=== PATIENT | female | born 1935 | race Caucasian/White ===

== ENCOUNTER 2019-08-19 20:18 | Inpatient (IN) | payer MEDICARE, SELFPAY ==
[~2019-08-19] VITALS: Ht 167.6 cm; Wt 50.7 kg
[2019-08-19 20:51] LABS: BASO # 0.1 10^3/uL (0.0-0.2); BASO % 0.5 % (0.0-1.0); HEMATOCRIT 44.1 % (36.0-47.0); HEMOGLOBIN 14.4 g/dl (12.0-15.5); LYMPH # 0.6 10^3/uL (1.5-5.0); LYMPH % 4.6 % (24.0-44.0); MEAN CORPUSCULAR HEMOGLOBIN 30.6 pg (27.0-33.0); MEAN CORPUSCULAR HGB CONC 32.7 g/dl (32.0-36.5); MEAN CORPUSCULAR VOLUME 93.8 fl (80.0-96.0); MONO # 0.5 10^3/uL (0.0-0.8); MONO % 4.2 % (0.0-5.0); NEUTROPHILS # 11.6 10^3/uL (1.5-8.5); NEUTROPHILS % 90.2 % (36.0-66.0); PLATELET COUNT, AUTOMATED 270 10^3/uL (150-450); WHITE BLOOD COUNT 12.8 10^3/uL (4.0-10.0)
[2019-08-19 20:55] LABS: INR 1.03; PROTHROMBIN TIME 13.2 SECONDS (11.8-14.0)
[2019-08-19] MEDS ORDERED: ENOXAPARIN 30MG/0.3ML SYRINGE (J1650 PER 10MG) SC SCH (21:00)
[2019-08-19 21:01] LABS: BLOOD UREA NITROGEN 20 MG/DL (7-18); CALCIUM LEVEL 8.8 MG/DL (8.8-10.2); CARBON DIOXIDE LEVEL 29 MEQ/L (21-32); CHLORIDE LEVEL 103 MEQ/L (98-107); CREATININE FOR GFR 0.82 MG/DL (0.55-1.30); GLOMERULAR FILTRATION RATE > 60.0 (>32); GLUCOSE, FASTING 117 MG/DL (70-100); POTASSIUM SERUM 4.1 MEQ/L (3.5-5.1); SODIUM LEVEL 137 MEQ/L (136-145)
--- NOTE | 2019-08-19 21:14 | ECGEPIP ---
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
[2019-08-19] MEDS ORDERED: MOM 30ML SUSPENSION UDC PO PRN (22:45)
--- NOTE | 2019-08-19 23:25 | HPEPDOC ---
General Date of Admission August 19, 2019 at 22:37 Date of Service: August 19, 2019 Attending Physician: IBIS LAUREANO MD Chief Complaint The patient is a 84-year-old female admitted with a reason for visit of Hip Fracture. Source: Patient Exam Limitations: No limitations Timing/Duration: 4-6 hours Severity: Moderate Associated Symptoms: Mechanical fall History of Present Illness 84 yo health woman with no chronic medical problems who misstepped onto uneven pavement where there was a hole and she fell and presented to the ED where she was found to have a L intertrochanteric hip fracture. On presentation she suprisingly does not have much pain except when she moves her L leg, and otherwise feels well and is eager to have her surgery. She reports no LOC, recent fever, chills, travel, sick contacts, or chronic medical problems. Dr. Aguilera was called by the ED and recommended admission by medicine with plan for surgery shortly. Work up was notable for WBC 12.8, Hgb 14.4, Na 137, K 4.1, Cr 0.82, INR 1.03, EKG with NSR, CXR without acute pathology and XR of L hip and L femur XR confirmed the fracture. On evaluation she appeared comfortable with no complaints, and instructed that she is DNR/DNI despite her good baseline health. Home Medications No Active Prescriptions or Reported Meds Allergies Coded Allergies: No Known Allergies (Verified Allergy, Unknown, 08/19/19) Past Medical History Medical History Healthy at baseline Surgical History None Family History Significant Family History: No pertinent family hx Social History * Smoker: Denies Alcohol: occationally Drugs: denies Recent Travel/Sick Contacts: Denies: Recent travel, Recent sick contacts Psychosocial History: No pertinent psych hx Lives at home alone, independently, has family around in town. A-FIB/CHADSVASC A-FIB History Current/History of A-Fib/PAF?: No Current PO Anticoag Therapy: No Age/Risk Factor Scoring CHADSVASC: CHADSVASC Response (Comments) Value Age Risk Factor Age >/= 75 years old 2 Gender Risk Factor Female 1 Hx of CHF No 0 Hx of HTN No 0 Hx of Stroke/TIA/or VTE No 0 Hx of Diabetes No 0 Hx of Vascular Disease No 0 Total 3 Treatment Treatment ordered: NONE Reason Anticoagulant not given: Not indicated/[id number] Review of Systems Constitutional: Denies: Chills, Fever, Night Sweats Eyes: Denies: Pain, Vision change ENT: Denies: Head Aches, Ear Pain, Dysphagia Skin: Denies: Rash, Lesions, Breakdown Pulmonary: Denies: Dyspnea, Cough Cardiovascular: Denies: Chest Pain, Palpitations, Orthopnea, Paroxysmal Noc. Dyspnea, Lt Headedness Gastrointestinal: Denies: Nausea, Vomiting, Abdominal Pain, Diarrhea Genitourinary: Denies: Dysuria, Frequency, Incontinence, Retention Hematologic: Denies: Bruising, Bleeding Excessively Endocrine: Denies: Polydipsia, Polyphagia, Polyuria, Heat Intolerance, Cold Intolerance, Other Endocrine Sx Musculoskeletal: Reports: Leg Pain (L hip pain); Denies: Neck Pain, Back Pain, Shoulder Pain, Arm Pain, Hand Pain, Foot Pain Neurological: Denies: Weakness, Numbness, Incoordination, Change in speech, Confusion Psych: Reports: Mood Normal; Denies: Depression, Memory Issues Physical Examination General Exam: Positive: Alert, No Acute Distress Eye Exam: Positive: PERRLA, Conjunctiva & lids normal, EOMI; Negative: Sclera icteric ENT Exam: Positive: Atraumatic, Mucous membr. moist/pink, Pharynx Normal Neck Exam: Positive: Supple; Negative: JVD, thyromegaly Chest Exam: Positive: Clear to auscultation, Normal air movement Heart Exam: Positive: Rate Normal, Regular Rhythm, Normal S1, Normal S2; Negative: Murmurs, Rubs Telemetry: Positive: No significant arrhythmia Abdomen Exam: Positive: Normal bowel sounds, Soft; Negative: Tenderness, Hepatospenomegaly Extremity Exam: Positive: Normal pulses, Tenderness (tender L hip with movement); Negative: Clubbing, Cyanosis, Edema, Swelling Skin Exam: Positive: Nl turgor and temperature; Negative: Breakdown, Lesion Neuro Exam: Positive: Normal Speech, Strength at 5/5 X4 ext (LLE exam limited by pain), Normal Tone, Sensation Intact, Cranial Nerves 3-12 NL Psych Exam: Positive: Mental status NL, Mood NL, Oriented x 3 Vital Signs Vital Signs Date Time Temp Pulse Resp B/P (MAP) Pulse Ox O2 Delivery O2 Flow Rate FiO2 08/19/19 21:33 86 18 97 Room Air 08/19/19 20:34 97.8 160/98 (118) Laboratory Data Labs 24H Laboratory Tests 2 08/19/19 20:31: Immature Granulocyte % (Auto) 0.5, Neutrophils (%) (Auto) 90.2H, Lymphocytes (%) (Auto) 4.6L, Monocytes (%) (Auto) 4.2, Eosinophils (%) (Auto) 0.0, Basophils (%) (Auto) 0.5, Neutrophils # (Auto) 11.6H, Lymphocytes # (Auto) 0.6L, Monocytes # (Auto) 0.5, Eosinophils # (Auto) 0.0, Basophils # (Auto) 0.1, Nucleated Red Blood Cells % (auto) 0.0, Prothrombin Time 13.2, Prothromb Time International Ratio 1.03, Activated Partial Thromboplast Time 27.0, Anion Gap 5L, Glomerular Filtration Rate > 60.0, Calcium Level 8.8 CBC/BMP Laboratory Tests 08/19/19 20:31 Assessment/Plan 84 yo healthy W who had a mechanical fall ealier today and is now being admitted with a L intertrochanteric femur fracture now pending surgery. L hip fracture: -No pain when not moving -PRN tylenol Q6HP, will escalate pain control as needed -Dr. Singletary is aware, and consulted and recommended admission by medicine -No medical problems, otherwise nonfocal physical examination, CBC with reactive leukocytosis, BMP wnl, EKG with NSR, coags wnl, CXR wnl, pending Covid-19 testing per guidelines pre-surgery. Otherwise medically clear for surgery at this time. Will update note with covid-19 results shortly. DVT ppx: TEDs Dispo: medsurg, pending surgery Diet: NPO for surgery Plan / VTE VTE Prophylaxis Ordered?: Yes IBIS LAUREANO MD August 19, 2019 23:24
[2019-08-19] MEDS: ACETAMINOPHEN TAB 650MG DOSE (2X325MG) PO PRN (23:44)
[2019-08-20] VITALS (9 sets, daily range): BP systolic 101–122; BP diastolic 65–82
[2019-08-20] MEDS: D5W/0.9% SODIUM CHLORIDE 1,000 ML IV SCH ×2 (01:28→12:20)
[2019-08-20] MEDS: MORPHINE 2 MG/ML 1ML VIAL (J2270) IV PRN ×2 (01:28→07:47)
--- NOTE | 2019-08-20 02:26 | REP ---
Clinical: Trauma. Fracture. Technique: AP and cross-table lateral views of the mid to distal left femur. Findings: Visualized portions of the left femur are intact without acute fracture or dislocation. No subcutaneous emphysema. No foreign body. Impression: Mid to distal femur without acute fracture or dislocation. Electronically Signed by Nicholas Coulter MD 08/20/2019 02:17 A
--- NOTE | 2019-08-20 02:27 | REP ---
Clinical: Trauma. Technique: Frontal view of the pelvis with neutral and frog lateral views of the left hip. Findings: Angulated displaced intertrochanteric fracture of the proximal left femur. Remainder of the visualized pelvis and right hip demonstrate generalized age-related changes. No significant foreign body. Impression: Angulated displaced intertrochanteric fracture of the proximal left femur. Electronically Signed by Nicholas Coulter MD 08/20/2019 02:18 A
--- NOTE | 2019-08-20 02:28 | REP ---
Clinical: Preoperative assessment. Left hip fracture . Comparison: None . Findings: The mediastinum and cardiac silhouette are stable and within normal limits for portable technique. The lung rhodes are clear without acute consolidation, effusion, or pneumothorax. Skeletal structures are intact. Impression: No acute cardiopulmonary process appreciated. Electronically Signed by Nicholas Coulter MD 08/20/2019 02:19 A
[2019-08-20 05:50] LABS: HEMATOCRIT 34.2 % (36.0-47.0); MEAN CORPUSCULAR HGB CONC 33.3 g/dl (32.0-36.5); MEAN CORPUSCULAR VOLUME 92.9 fl (80.0-96.0); PLATELET COUNT, AUTOMATED 192 10^3/uL (150-450); RED BLOOD COUNT 3.68 10^6/uL (4.00-5.40)
[2019-08-20] MEDS ORDERED: ceFAZolin SOD 2 GM in IV 1 EA IV ONE (06:00)
[2019-08-20 06:13] LABS: BLOOD UREA NITROGEN 21 MG/DL (7-18); CALCIUM LEVEL 8.1 MG/DL (8.8-10.2); CARBON DIOXIDE LEVEL 26 MEQ/L (21-32); CHLORIDE LEVEL 105 MEQ/L (98-107); CREATININE FOR GFR 0.71 MG/DL (0.55-1.30); GLOMERULAR FILTRATION RATE > 60.0 (>32); GLUCOSE, FASTING 163 MG/DL (70-100); POTASSIUM SERUM 3.9 MEQ/L (3.5-5.1); SODIUM LEVEL 138 MEQ/L (136-145)
[2019-08-20 06:15] LABS: HEMOGLOBIN 11.4 g/dl (12.0-15.5)
[2019-08-20] MEDS ORDERED: FLUBLOK(EGG FREE)(QUAD)INFLUENZA VACC 0.5ML SYRINGE 18YRS & OLDER IM ONE (09:00)
[2019-08-20] MEDS ORDERED: propofoL 200 MG/20 ML VIAL As Ordered ONE (10:48)
[2019-08-20] MEDS ORDERED: LIDOCAINE 2% 100MG/5ML SDV (FOR ANES.) As Ordered ONE (10:48)
[2019-08-20] MEDS ORDERED: MIDAZOLAM INJ 2MG/2ML VIAL (J2250 PER 1MG) As Ordered ONE (11:41)
[2019-08-20] MEDS ORDERED: fentaNYL 100 MCG/2 ML INJECTION (J3010) As Ordered ONE (11:41)
[2019-08-20] MEDS ORDERED: ceFAZolin 2 GM/D5W 50 ML IV BAG (J0690 PER 500MG) As Ordered ONE (11:41)
[2019-08-20] MEDS ORDERED: ROCURONIUM BROMIDE 50 MG/5 ML VIAL As Ordered ONE (12:12)
[2019-08-20] MEDS ORDERED: dexameTHASONE 4 MG/ML 1ML VIAL (J1100 PER 1MG) As Ordered ONE (12:35)
[2019-08-20] MEDS ORDERED: PHENYLephrine 500MCG 5ML (100MCG/ML) SYRINGE As Ordered ONE ×2 (12:36→12:49)
[2019-08-20] MEDS ORDERED: ePHEDrine SULFATE 25 MG/5 ML(5MG/ML) SYRINGE As Ordered ONE (12:36)
[2019-08-20] MEDS ORDERED: ACETAMINOPHEN 1000MG 100ML IV BTL (OFIRMEV) (J0131 PER 10MG) As Ordered ONE (12:51)
[2019-08-20] MEDS ORDERED: ONDANSETRON 4MG/2ML VIAL As Ordered ONE (12:51)
--- NOTE | 2019-08-20 13:08 | CR ---
DATE OF CONSULTATION: 08/20/2019 CHIEF COMPLAINT: Left hip pain. The patient states that she was at home when she stepped into a hole and immediately fell and appreciated sharp pain to her left hip. She was unable to ambulate, and any sort of movement caused severe pain and is only improved with rest and immobilization and pain medication. Denies any fevers, chills, nausea, vomiting, loss of consciousness, or pain elsewhere. A complete review of systems was completed with pertinent positives and negatives as per history of present illness (HPI). A ten-system review. All other systems negative. HOME MEDICATIONS: No active prescriptions. No known drug allergies. PAST MEDICAL HISTORY: Is healthy at baseline. No past surgical history. FAMILY HISTORY: Is nonpertinent. SOCIAL HISTORY: The patient denies being a smoker. Occasional alcoholic drink. Denies any illicit drug use. PHYSICAL EXAMINATION: The patient is awake, alert, and oriented. Well dressed, appropriate affect. Breathing unlabored on room air. Normocephalic, atraumatic. Bilateral upper extremities: No tenderness to palpation. Full active range of motion of the shoulders, elbows, and fingers. Positive anterior interosseous nerve (AIN) and posterior interosseous nerve (PIN) and ulnar motor nerve functions. Sensation intact to light touch, superficial sensory branches of the radial nerve, median nerve, and ulnar nerve. Radial pulse 2+, regular rate. Right lower extremity: No tenderness to palpation over the tib. Negative logroll. Able to range the knee and ankle. Sensation intact to light touch superficial peroneal, deep peroneal, sural, saphenous, and tibia distributions. Positive extensor hallucis longus (EHL), flexor hallucis longus (FHL), tibia, and gastroc motor functions. Posterior tibial pulse 2+, regular rate. Left lower extremity: Positive logroll. Tender to palpation about the hip. No tenderness to palpation about the knee or ankle. Positive EHL, FHL, tibia, and gastroc motor functions. Sensation intact to light touch superficial, peroneal, deep peroneal, sural, saphenous, and tibia distributions. Posterior tibial pulse 2+, regular rate. IMAGING: Reviewed. Left hip and femur x-rays reviewed, demonstrating intertrochanteric hip fracture that is displaced. I expressed to the patient that, unfortunately, at this time it is an unstable fracture, and I recommend operative intervention for her in order for her to increase her mobilization and pain control. The patient expressed understanding and agreed to that plan. We discussed the risks and benefits including but not limited to infection, damage to surrounding structures, incomplete relief, malunion, nonunion. The patient wished to proceed. The patient is consented. The patient is bedrest until surgery. Appreciate medical admission and management.
[2019-08-20] MEDS ORDERED: LR 1,000 ML IV SCH (13:45)
[2019-08-20] MEDS ORDERED: oxyCODONE 5MG TAB PO PRN (13:45)
[2019-08-20] MEDS ORDERED: MORPHINE 2 MG/ML 1ML VIAL (J2270) IV PRN (13:45)
[2019-08-20] MEDS ORDERED: fentaNYL 100 MCG/2 ML INJECTION (J3010) IV PRN (13:45)
--- NOTE | 2019-08-20 14:08 | IPNPDOC ---
Date Seen The patient was seen on 08/20/19. Progress Note SUBJECTIVE: pain controlled, ortho surgery 08/20/19, no history of stroke, SD: Medically clear for surgery: Class I risk 0 points via revised cardiac risk index, COVID neg OBJECTIVE PHYSICAL EXAMINATION: VITAL SIGNS: Please see below. GENERAL: No distress HEENT: Normocephalic, atraumatic, moist mucous membranes NECK: Supple CARDIOVASCULAR EXAMINATION: S1, S2 RESPIRATORY EXAMINATION: CTAB ABDOMINAL EXAMINATION: Soft, nontender, nondistended, positive bowel sounds EXTREMITIES: no edema, LLE externally rotated, pulses intact SKIN: No rash NEUROLOGICAL EXAMINATION: Alert and oriented 3, no focal deficits PSYCHIATRIC EXAMINATION: Calm and cooperative, appropriate affect LABORATORY DATA, IMAGING STUDIES, MICROBIOLOGY: Please see below. Assessment and plan: Pt is a healthy 84 yoF who presents with mechanical fall with L intertrochanteric femur fracture. #L hip fracture secondary to mechanical fall: Pain controlled, PRN tylenol Q6HP, will escalate pain control as needed -Dr. Singletary is aware, and consulted, COVID screen neg -PT/OT DVT ppx: TEDs Dispo: medsurg, pending surgery Diet: NPO for surgery, regular diet after surgery VS, I&O, 24H, Fishbone Vital Signs/I&O Vital Signs Date Time Temp Pulse Resp B/P (MAP) Pulse Ox O2 Delivery O2 Flow Rate FiO2 08/20/19 13:49 69 16 104/58 (73) 95 Room Air 08/20/19 13:34 97.7 I&O- Last 24 Hours up to 6 AM 08/20/19 06:00 Intake Total 0 ml Output Total 0 ml Balance 0 ml Laboratory Data 24H LABS Laboratory Tests 2 08/19/19 20:31: Immature Granulocyte % (Auto) 0.5, Neutrophils (%) (Auto) 90.2H, Lymphocytes (%) (Auto) 4.6L, Monocytes (%) (Auto) 4.2, Eosinophils (%) (Auto) 0.0, Basophils (%) (Auto) 0.5, Neutrophils # (Auto) 11.6H, Lymphocytes # (Auto) 0.6L, Monocytes # (Auto) 0.5, Eosinophils # (Auto) 0.0, Basophils # (Auto) 0.1, Nucleated Red Blood Cells % (auto) 0.0, Prothrombin Time 13.2, Prothromb Time International Ratio 1.03, Activated Partial Thromboplast Time 27.0, Anion Gap 5L, Glomerular Filtration Rate > 60.0, Calcium Level 8.8 08/19/19 22:58: Coronavirus (COVID-19)(PCR) NEGATIVE 08/20/19 05:33: Nucleated Red Blood Cells % (auto) 0.0, Anion Gap 7L, Glomerular Filtration Rate > 60.0, Calcium Level 8.1L CBC/BMP Laboratory Tests 08/19/19 20:31 08/20/19 05:33 LILLIANA SORIA MD August 20, 2019 14:06
[2019-08-20] MEDS ORDERED: PERCOCET 5MG/325MG TAB PO PRN ×2 (15:15)
--- NOTE | 2019-08-20 15:41 | REP ---
C-ARM VIEWS LEFT HIP AND FEMUR: Multiple C-arm views left hip and femur are performed during placement of intramedullary malinda for a fracture of the proximal femur. The structures are well aligned. The fixation appears in good position. 2 minutes 26 seconds fluoroscopy time utilized. Electronically Signed by Mj Lu MD 08/20/2019 07:31 P
[2019-08-20] MEDS: ceFAZolin 1GM VIAL (J0690 PER 500MG) IV SCH (20:16)
--- NOTE | 2019-08-20 22:18 | RO ---
DATE OF PROCEDURE: 08/20/2019 PREPROCEDURE DIAGNOSIS: Left intertrochanteric hip fracture. POSTPROCEDURE DIAGNOSIS: Left intertrochanteric hip fracture. PROCEDURE: Left femur rodding. SURGEON: Dr. Erick Mack FLASH WELDING MACHINE OPERATOR: None. ANESTHESIA: General. INDICATIONS: This is an 84-year-old female that suffered a fall and fracture of her left hip. We discussed the risks and benefits of surgical intervention, including but not limited to, infection, damage to surrounding structures, blood loss, incomplete relief, malunion, nonunion, patient wished to proceed. We discussed how operative intervention increased her pain control and mobility and decrease the risk to her cardiovascular pulmonary health. Patient agreed and wished to proceed. PREOPERATIVE ANTIBIOTICS: 2 grams of Ancef. BLOOD LOSS: 100 mL. COMPLICATIONS: None. DESCRIPTION OF PROCEDURE: The patient was brought back to the operating room (OR) in the supine position, underwent general anesthesia, at which point she was placed on the fracture stable. We then had a time-out confirming side, site, and surgery and placed the left leg under traction. We were happy with our reduction; however, the fracture was in slight in flexion and valgus. We then prepped and draped the left leg in the usual fashion. Had a second time-out confirming side, site and surgery. Once all in agreement, we made a longitudinal incision proximal to the greater trochanter and the femur. We then confirmed our start point with the K-wire on AP and lateral films, at which point we inserted K-wire, then overdrilled with the entry reamer. We then slid down the guidewire and sequentially reamed up to 12.5. We measured a 360 mm nail. We then inserted the 125-degree TFNA 360 mm nail down the canal, at which point we made a stab incision in the lateral aspect to dual function as our reduction and also entry site for our helical blade. We used a tonsil to clear a path in the anterior portion of the distal femoral neck. We then placed a bone hook to remove the valgus deformity along with the anterior apex. We confirmed this in AP and lateral films. We were happy. We then inserted the K-wire in center-center positioning, confirmed on AP and lateral, measured to be a 90 helical blade. We then drilled up to 90 and inserted the helical blade. We were happy with our reduction at this point and locked the helical blade in position removing the K-wire. We then used perfect [place] technique to make a stab incision in the distal interlock and drilled and place a screw at the distal hole. We confirmed our position of the hardware and fracture on both AP and laterals. We were happy with our reduction and fixation at this point. We then irrigated the wounds thoroughly, closed with #2-0 Vicryl, shwetha, gauze and Tegaderm. The patient was taken off the fracture table and taken to the post-anesthesia care unit (PACU) in stable condition. POSTOPERATIVE PLAN: The patient will be weightbearing as tolerated and Surgical Care Improvement Project (SCIP) antibiotic prophylaxis, along with deep vein thrombosis (DVT) prophylaxis. MARIMAR
[2019-08-21] VITALS (7 sets, daily range): BP systolic 14–133; BP diastolic 49–97
[2019-08-21] MEDS: ceFAZolin 1GM VIAL (J0690 PER 500MG) IV SCH ×2 (04:51→12:00)
[2019-08-21] MEDS: ACETAMINOPHEN TAB 650MG DOSE (2X325MG) PO PRN (05:21)
[2019-08-21 06:08] LABS: HEMATOCRIT 29.7 % (36.0-47.0); HEMOGLOBIN 9.7 g/dl (12.0-15.5); MEAN CORPUSCULAR HEMOGLOBIN 31.1 pg (27.0-33.0); MEAN CORPUSCULAR HGB CONC 32.7 g/dl (32.0-36.5); MEAN CORPUSCULAR VOLUME 95.2 fl (80.0-96.0); PLATELET COUNT, AUTOMATED 180 10^3/uL (150-450); RED BLOOD COUNT 3.12 10^6/uL (4.00-5.40); WHITE BLOOD COUNT 6.1 10^3/uL (4.0-10.0)
[2019-08-21 06:33] LABS: BLOOD UREA NITROGEN 20 MG/DL (7-18); CALCIUM LEVEL 7.9 MG/DL (8.8-10.2); CARBON DIOXIDE LEVEL 26 MEQ/L (21-32); CHLORIDE LEVEL 105 MEQ/L (98-107); CREATININE FOR GFR 0.78 MG/DL (0.55-1.30); GLOMERULAR FILTRATION RATE > 60.0 (>32); GLUCOSE, FASTING 112 MG/DL (70-100); POTASSIUM SERUM 4.1 MEQ/L (3.5-5.1); SODIUM LEVEL 137 MEQ/L (136-145)
[2019-08-21] MEDS ORDERED: traMADol 50 MG TAB PO PRN ×2 (10:00)
[2019-08-21] MEDS: SENOKOT S TAB PO SCH ×2 (10:15→21:16)
[2019-08-21] MEDS: MIRALAX *UNIT DOSE* 17GM PACKET PO SCH (10:15)
[2019-08-21] MEDS: FLUBLOK(EGG FREE)(QUAD)INFLUENZA VACC 0.5ML SYRINGE 18YRS & OLDER IM ONE ×2 (10:15→10:27)
[2019-08-21] MEDS ORDERED: NS 1,000 ML IV SCH (10:45)
--- NOTE | 2019-08-21 11:47 | IPNPDOC ---
Text Note Date of Service The patient was seen on 08/21/19. NOTE Subjective: Patient is an 84-year-old female with no significant PMHx who presented to the hospital fallen and landed on her left hip. Upon arrival to ER, patient was found to have a left hip fracture and was admitted to hospitalist service for further evaluation and treatment. Orthopedic surgery was called on consultation. Patient ultimately went for surgery on 08/20/2019. Patient was seen and examined at the bedside. Currently patient denies any chest pain, shortness of breath or palpitation. She denies any nausea, vomiting, abdominal pain, diarrhea or constipation. Patient instructed with physical therapy and will be starting today. Objective: Vitals (See below) General: Lying in bed, no acute distress, comfortable, AAOx3 HEENT: NC, AT CVS: +S1S2 Lungs: Fair air entry b/l, -w/r/r Abdomen: Soft, ND, NT Extremities: - Edema, - Calf tenderness Assessment and plan: Syncopal episode - likely 2/2 orthostatic hypotension - likely 2/2 medications - Patient was working with physical therapy and had felt lightheaded - Patient was brought back to her bed and had resolution of her symptoms - Pain medications have been reduced - Will continue to check orthostatic vital signs every 8 hours - Will start IV fluid hydration L hip fracture 2/2 mechanical fall - s/p Left femur rodding 08/20/[address] Mack - Pain control, anticoagulation and PT as per orthopedic team Underweight - BMI 18 - Complicating medical care - Will advise about dietary changes / outpatient dietary consultation DVT prophylaxis - c/w Xarelto; as per orthopedic team Disposition: - Will work with PT and OT - Disposition within 24 hours based on their recommendations VS,Fishbone, I+O VS, Fishbone, I+O Laboratory Tests 08/21/19 05:28 Vital Signs Date Time Temp Pulse Resp B/P (MAP) Pulse Ox O2 Delivery O2 Flow Rate FiO2 08/21/19 10:00 98.1 80 17 120/97 (105) 94 Room Air I&O- Last 24 Hours up to 6 AM 08/21/19 06:00 Intake Total 1250 ml Balance 1250 ml DANITA SOUTH MD August 21, 2019 11:47
[2019-08-21] MEDS ORDERED: ceFAZolin SOD 1 GM in D5W MINI-BAG PLUS 50 ML IV ONE (12:30)
[2019-08-21] MEDS: ACETAMINOPHEN 500 MG TAB PO SCH ×2 (14:12→21:16)
[2019-08-21] MEDS ORDERED: TRAM50TA2 PO (14:29)
[2019-08-21] MEDS ORDERED: TYLE650T38 PO (14:29)
[2019-08-21] MEDS ORDERED: RIVAROXABAN 10 MG TAB (XARELTO) PO SCH (18:00)
[2019-08-22] MEDS: ACETAMINOPHEN 500 MG TAB PO SCH ×2 (05:44→12:45)
[2019-08-22 05:55] LABS: HEMATOCRIT 25.5 % (36.0-47.0); HEMOGLOBIN 8.4 g/dl (12.0-15.5); MEAN CORPUSCULAR HEMOGLOBIN 31.5 pg (27.0-33.0); MEAN CORPUSCULAR HGB CONC 32.9 g/dl (32.0-36.5); MEAN CORPUSCULAR VOLUME 95.5 fl (80.0-96.0); PLATELET COUNT, AUTOMATED 146 10^3/uL (150-450); RED BLOOD COUNT 2.67 10^6/uL (4.00-5.40); WHITE BLOOD COUNT 5.5 10^3/uL (4.0-10.0)
[2019-08-22 06:00] VITALS: BP_SYST 131; BP_SYST 136; BP_SYST 139; BP_DIAS 76; BP_DIAS 82; BP_DIAS 86
[2019-08-22 06:01] LABS: BLOOD UREA NITROGEN 17 MG/DL (7-18); CALCIUM LEVEL 7.7 MG/DL (8.8-10.2); CARBON DIOXIDE LEVEL 29 MEQ/L (21-32); CHLORIDE LEVEL 111 MEQ/L (98-107); GLOMERULAR FILTRATION RATE > 60.0 (>32); GLUCOSE, FASTING 93 MG/DL (70-100); SODIUM LEVEL 143 MEQ/L (136-145)
--- NOTE | 2019-08-22 08:15 | DS.PDOC ---
Discharge Summary General Date of Admission August 19, 2019 at 22:37 Date of Discharge 08/22/2019 Discharge Summary PROCEDURES PERFORMED DURING STAY: [None]. ADMITTING DIAGNOSES / DISCHARGE DIAGNOSES: Syncopal episode - likely 2/2 vasovagal, possibly 2/2 orthostatic hypotension - likely 2/2 medications Anemia L hip fracture 2/2 mechanical fall Underweight DVT prophylaxis COMPLICATIONS/CHIEF COMPLAINT: Left Hip Fracture after a fall HISTORY OF PRESENT ILLNESS: Patient is an 84-year-old female with no significant PMHx who presented to the hospital fallen and landed on her left hip. Upon arrival to ER, patient was found to have a left hip fracture and was admitted to hospitalist service for further evaluation and treatment. Orthopedic surgery was called on consultation. Patient ultimately went for surgery on 08/20/2019. HOSPITAL COURSE: Syncopal episode - likely 2/2 vasovagal, possibly 2/2 orthostatic hypotension - likely 2/2 medications - Patient was working with physical therapy and had felt lightheaded - Patient was brought back to her bed and had resolution of her symptoms - Pain medications have been reduced - Orthostatic vital signs have been negative - Will DC IV fluid hydration Anemia - Hemoglobin has trended down; likely 2/2 dilutional etiology 2/2 IV fluid hydration - Clinically patient is negative orthostatics - Remains asymptomatic - Will check iron panel L hip fracture 2/2 mechanical fall - s/p Left femur rodding 08/20/[address] Mack - Pain control, anticoagulation and PT as per orthopedic team Underweight - BMI 18 - Complicating medical care - Will advise about dietary changes / outpatient dietary consultation DVT prophylaxis - c/w Xarelto; as per orthopedic team DISCHARGE MEDICATIONS: Please see below. ALLERGIES: Please see below. PHYSICAL EXAMINATION ON DISCHARGE: Vitals (See below) General: Lying in bed, no acute distress, comfortable, AAOx3 HEENT: NC, AT CVS: +S1S2 Lungs: Fair air entry b/l, -w/r/r Abdomen: Soft, ND, NT Extremities: No evidence of edema, - Calf tenderness LABORATORY DATA: Please see below. ACTIVITY: [As tolerated]. DISCHARGE PLAN: Follow up with PCP and Dr. Aguilera within 7 days. Remain compliant with treatment plan and medications Return to the ER if you experience any problems. DISPOSITION: [facility] rehabilitation DISCHARGE CONDITION: [Stable]. TIME SPENT ON DISCHARGE: 35 minutes Vital Signs/I&Os Vital Signs Date Time Temp Pulse Resp B/P (MAP) Pulse Ox O2 Delivery O2 Flow Rate FiO2 08/22/19 06:00 84 136/76 (96) 91 131/86 (101) 100 139/82 (101) 08/22/19 06:00 98.9 18 98 Room Air I&O- Last 24 Hours up to 6 AM 08/22/19 06:00 Intake Total 1370 ml Balance 1370 ml Laboratory Data Labs 24H Laboratory Tests 2 08/22/19 04:59: Nucleated Red Blood Cells % (auto) 0.0, Anion Gap 3L, Glomerular Filtration Rate > 60.0, Calcium Level 7.7L CBC/BMP Laboratory Tests 08/22/19 04:59 Discharge Medications Scheduled Acetaminophen (Tylenol 8 Hour) 650 Mg Tablet.er, 650 MG PO 1000 Scheduled PRN Tramadol HCl (Tramadol HCl) 50 Mg Tablet, 1-2 TAB PO Q4H PRN for PAIN Allergies Coded Allergies: No Known Allergies (Verified Allergy, Unknown, 08/19/19) DANITA SOUTH MD August 22, 2019 08:15
[2019-08-22 08:37] LABS: FERRITIN 92 NG/ML (8-252); IRON (FE) 18 UG/DL (50-170); PERCENT SATURATION 9.3 % (13.2-45.0); TOTAL IRON BINDING CAPACITY 194 UG/DL (250-450)
[2019-08-22] MEDS: SENOKOT S TAB PO SCH (08:52)
[2019-08-22] MEDS: MIRALAX *UNIT DOSE* 17GM PACKET PO SCH (08:52)
[2019-08-22] MEDS ORDERED: XARE10TA PO (09:35)
== END 2019-08-22 12:50 | disposition home or self-care (01) | DRG 481 ==
LOC: M ED 20:18 → EDBD 20:18 → M ED INP 22:37 → ENRESERVTM 22:58 → M MS5PR 08-20 01:45
PROVIDERS: ADMIT Internal Medicine; ATTEND Internal Medicine
PROC: 0QSC04Z Reposition Left Lower Femur with Internal Fixation Device, Open Approach (ICD-10-PCS; principal; 2019-08-20 11:30)
DX: S72.142A Displaced intertrochanteric fracture of left femur, initial encounter for closed fracture (principal); Z68.1 Body mass index [BMI] 19.9 or less, adult; W18.30XA Fall on same level, unspecified, initial encounter; Y92.008 Other place in unspecified non-institutional (private) residence as the place of occurrence of the external cause; I95.1 Orthostatic hypotension